=== PATIENT | female | born 1990 | race Caucasian/White ===

== ENCOUNTER → 2023-08-25 | Emergency (ER) | payer OTHER ==
[~2023-08-25] VITALS: Ht 162.6 cm; Wt 68.0 kg
[2023-08-26 02:17] LABS: HEMATOCRIT 35.5 % (36.0-45.00); MEAN CELL VOLUME 89.7 fL (80.00-100.00); MEAN CORPUSCULAR HEMOGLOBIN 30.3 pg (27.00-32.0); MEAN CORPUSCULAR HGB CONC 33.8 g/dl (32.0-36.0); PLATELET COUNT 173 K/uL (150-450); RED BLOOD COUNT 3.96 M/uL (4.00-6.00); RED CELL DISTRIBUTION WIDTH 13.8 % (11.5-14.5)
[2023-08-26 02:45] LABS: AMYLASE 41 U/L (25-115); ANION GAP 10 (10.0-20.0); BLOOD UREA NITROGEN 5 mg/dL (7-18); BUN CREA RATIO 6 (7.0-25.0); CARBON DIOXIDE 26 mEq/L (21-32); CHLORIDE 104 mmol/L (98-107); CREATININE SERUM 0.79 mg/dL (0.55-1.02); GFR 85.45; GLUCOSE FASTING 97 mg/dL (65-100); LIPASE 19 U/L (13-75); OSMOLALITY SERUM 269 MOSM/KG (275-295); SODIUM 136 mmol/L (136-145)
[2023-08-26 02:50] LABS: HCG QUANTITATIVE < 1 mUI/mL (1-3)
== END | disposition home or self-care (01) ==
LOC: ER 21:43
PROVIDERS: General Practice
DX: R10.13 Epigastric pain (principal); S79.911A Unspecified injury of right hip, initial encounter; W18.30XA Fall on same level, unspecified, initial encounter; Y93.9 Activity, unspecified; Y92.9 Unspecified place or not applicable; Y99.9 Unspecified external cause status

== ENCOUNTER → 2023-10-05 | Emergency (ER) | payer OTHER ==
[~2023-10-05] VITALS: Ht 165.1 cm; Wt 68.0 kg
== END | disposition left against medical advice (07) ==
LOC: ER 20:14
DX: Z53.21 Procedure and treatment not carried out due to patient leaving prior to being seen by health care provider (principal)